=== PATIENT | female | born 1985 | race Caucasian/White ===

== ENCOUNTER 2020-11-19 10:29 | Outpatient (CLI) | payer OTHER ==
[~2020-11-19 10:29] MED LIST: DOCU-131 PO; IBUP-1222 PO; LEVO150T5 PO; PREN1TAB98 PO
== END 2020-11-19 23:59 | disposition home or self-care (01) ==
LOC: CFH 10:29
PROVIDERS: ATTEND Obstetrics & Gynecology
DX: Z15.01 Genetic susceptibility to malignant neoplasm of breast (principal)
CPT/HCPCS: 76641